=== PATIENT | male | born 1975 | race African-American/Black ===

== ENCOUNTER 2019-09-30 12:12 | Inpatient (IN) | payer MEDICAID ==
[~2019-09-30] VITALS: Ht 175.3 cm; Wt 81.4 kg
--- NOTE | 2019-09-30 12:21 | NUR ---
"VLADISLAVANGIE, FROM [facility], MISSED DIALYSIS DAYS DUE TO INSURANCE LAST HD SUNDAY" PT AAOX4, -SOB, NAD NTOED, VSS ,PTON MONITOR, PENDING MD SCHULRE
[2019-09-30 12:32] LABS: BASOPHILS # (AUTO) 0.1 /CMM (0.0-0.2); BASOPHILS % (AUTO) 1.5 % (0.0-2.0); EOSINOPHILS % (AUTO) 6.5 % (0.0-6.0); HEMATOCRIT 27 % (39-51); HEMOGLOBIN 8.9 g/dL (13.5-17.5); LYMPHOCYTES # (AUTO) 1.7 /CMM (0.8-4.8); LYMPHOCYTES % (AUTO) 22.4 % (20.0-44.0); MEAN CORPUSCULAR HGB CONC 33 g/dl (31.0-36.0); MEAN CORPUSCULAR VOLUME 86 fL (80-96); MONOCYTES # (AUTO) 0.8 /CMM (0.1-1.30); MONOCYTES % (AUTO) 10.6 % (2.0-12.0); NEUTROPHILS # (AUTO) 4.4 /CMM (1.8-8.9); PLATELET COUNT (AUTO) 416 /CMM (150-450); RED BLOOD CELL COUNT(AUTO) 3.17 MIL/uL (4.5-6.0); WHITE BLOOD COUNT (AUTO) 7.4 K/uL (4.3-11.0)
[2019-09-30 12:50] LABS: POTASSIUM 4.3 mmol/L (3.5-5.1)
[2019-09-30 12:52] LABS: CALCIUM, SERUM 9.2 mg/dL (8.5-10.1); CREATININE 5.3 mg/dL (0.6-1.3)
--- NOTE | 2019-09-30 15:01 | NUR ---
CALLED NURSING SUP FOR TELE BED.
--- NOTE | 2019-09-30 15:03 | NUR ---
ABDIRAHMAN CALLED. WAITING FOR CALL BACK FROM PLATE SETTER
--- NOTE | 2019-09-30 15:21 | NUR ---
GOT BED 323-2 RN RORO
[2019-09-30] MEDS ORDERED: INSU100C10 SQ (15:30)
[2019-09-30] MEDS ORDERED: GABA-534 PO (15:30)
[2019-09-30] MEDS ORDERED: INSU100V7 SQ (15:30)
[2019-09-30] MEDS ORDERED: HYDR-4354 PO (15:30)
[2019-09-30] MEDS ORDERED: SEVE800T8 PO (15:30)
[2019-09-30] MEDS ORDERED: BRIM5DRO3 EACHEYE (15:30)
[2019-09-30] MEDS ORDERED: FURO-144 PO (15:30)
[2019-09-30] MEDS ORDERED: HYDR-4077 PO (15:30)
[2019-09-30] MEDS ORDERED: LATA2.5D7 OP (15:30)
[2019-09-30] MEDS ORDERED: ATOR10TA PO (15:30)
[2019-09-30] MEDS ORDERED: CARI350T27 PO (15:30)
[2019-09-30] MEDS ORDERED: DORZ10DR EACHEYE (15:30)
[2019-09-30] MEDS ORDERED: ASPI-605 PO (15:30)
--- NOTE | 2019-09-30 15:53 | NUR ---
REPORT GIVEN TO RORO ZUNIGA FOR NAHOMY PT WILL BE TRANSPORTED TO 3RD FLOOR VIA ACLS PROTOCOL.
[2019-09-30] MEDS ORDERED: ACETAMINOPHEN 325 MG TABLET PO PRN (16:00)
[2019-09-30] MEDS ORDERED: ZOLPIDEM TARTRATE 5 MG TABLET PO PRN (16:00)
[2019-09-30] MEDS ORDERED: DEXTROSE 50%-WATER 50 ML DISP.SYRIN IV PRN (16:00)
[2019-09-30] MEDS ORDERED: ONDANSETRON HCL/PF 4 MG/2 ML VIAL IVP PRN (16:00)
--- NOTE | 2019-09-30 16:00 | NUR ---
RECEIVED PATIENT FROM ER VIA GURNEY. PATIENT IS A/O X4, ABLE TO MAKE NEEDS KNOWN. AMBULATORY WITH CANE, WITH STEADY GAIT. DIAGNOSIS OF ESRD. PER PATIENT HE IS HERE BECAUSE HE MISSED DIALYSIS, DIALYSIS CENTER WONT ACCEPT HIM DUE TO INSURANCE PURPOSES. NOT IN ANY FORM OF DISTRESS, DENIED PAIN AT THIS TIME. NO SOB. IV ACCESS LEFT FA GAUGE 20 INTACT AND PATENT. NOTED WITH [facility] HD ACCESS. SITUATED PATIENT IN THE ROOM. TAUGHT HOW TO USE THE CALL LIGHT, INSTRUCTED TO CALL FOR ASSISTANCE. BELONGINGS CHECK BY CAMDEN RASMUSSEN. REFUSED BODY CHECK AND SKIN ASSESSMENT, PER PATIENT HE ONLY HAS OPEN WOUND ON HIS BACK, PATIENT AGREED TO TAKE WOUND PHOTO. REFUSED TO WHERE HOSPITAL GOWN, PATIENT ON HIS REGULAR CLOTHES. SAFETY MEASURES IN PLACE. BED IN LOW/LOCKED POSITION, SIDERAILS UPX2, CALL LIGHT IN REACH WILL CONTINUE TO MONITOR ACCORDINGLY.
--- NOTE | 2019-09-30 16:05 | NUR ---
rn notes patient stated that he is legally blind, he can see a little but blurry and shadows
[2019-09-30 16:10] VITALS: BP 139/82
[2019-09-30] MEDS: BRIMONIDINE TARTRATE OPHT SOLN 5 ML BOTTLE EACHEYE SCH (17:49)
[2019-09-30] MEDS: SEVELAMER CARBONATE 0.8 GM POWD.PACK GT SCH (17:50)
[2019-09-30] MEDS: FUROSEMIDE 40 MG TABLET PO SCH (17:50)
[2019-09-30] MEDS: BLOOD SUGAR DIAGNOSTIC 1 EACH STRIP IN SCH ×2 (17:53→22:21)
[2019-09-30] MEDS: INSULIN GLARGINE, 100 UNIT/ML CARTRIDGE SQ SCH (17:55)
[2019-09-30] MEDS: INSULIN REGULAR, HUMAN 100 UNIT/ML 3 ML VIAL SQ PRN (17:56)
[2019-09-30] MEDS: HYDROCODONE/APAP 10/325MG 1 EA TABLET PO PRN (18:25)
--- NOTE | 2019-09-30 18:45 | NUR ---
RN OPENING NOTES PATIENT IN STABLE CONDITION. ALL NEEDS ATTENDED AND PROVIDED. ALL DUE MEDS GIVEN ORDERED. KEPT PATIENT SAFE AND COMFORTABLE. BED IN LOW/LOCKED POSITION, SIDERAILS UPX2, CALL LIGHT IN REACH. WILL ENDORSED TO NIGHT RN FOR NAHOMY Addendum: 09/30/19 at 1928 by RORO WILLIAM CLOSING NOTES
--- NOTE | 2019-09-30 18:50 | NUR ---
rn notes bed alarm on
--- NOTE | 2019-09-30 19:20 | NUR ---
RN NOTES/ASSESSMENT: RECEIVED REPORT FROM RORO ZUNIGA. PT RESTING IN BED, AWAKE, A/O X3, ON RA RESPIRATIONS EVEN AND UNLABORED. ONGOING HD STARTED AT 1900. HD RN STACIE AT BED SIDE. HD CONSENT SECURED. PT REFUSED FULL BODY CHECK AND REFUSED WEARING HOSPITAL GOWN. EDUCATION PROVIDED TO PT REGARDING RISK AND BENEFITS. PT HAS IV ACCESS IN PLACED, PATENT AND FLUSHING WELL, ON HL. URINAL AT BED SIDE. SAFETY PRECAUTIONS FOR FALL INITIATED, CALL LIGHT IN REACH, WILL CONTINUE MONITORING PT.
--- NOTE | 2019-09-30 20:03 | NUR ---
RN NOTES/HEP B: APPROACHED BY HD RN IRVING QUINONES PT NEEDS TO HAVE BLOOD DRAW FOR HEP B. STATED SHE ASKED THE DAY RN TO HAVE IT DRAWN BEFORE HD, BUT FOR SOME REASON IT WASN'T DONE. IRVING QUINONES TO HAVE THE BLOOD DRAW IN AM AT 0500.
[2019-09-30 20:10] VITALS: BP 136/88
--- NOTE | 2019-09-30 20:53 | NUR ---
RN NOTES/HD COMPLETED: HD COMPLETED AT THIS TIME, 1500 ML OUTPUT.
[2019-09-30] MEDS: DORZOLAMIDE OPTH 2% 10 ML BOTTLE EACHEYE SCH (21:00)
[2019-09-30 21:56] VITALS: BP 129/74
[2019-09-30] MEDS: LATANOPROST EYE DROP 0.005% 2.5 ML BOTTLE OP SCH (22:00)
--- NOTE | 2019-09-30 22:14 | NUR ---
rn notes: pt c/o 06/21 toe pain, right foot pain, groin pain, stated he's now allergic to norco and he doesnt want any norco in his system, what he specifically wants is morphine or dilaudid. contacted dr nik del rosario concert manager, relayed the situation, per , "no, stick with norco order", no other medication order receive.
[2019-09-30] MEDS: GABAPENTIN 300 MG CAPSULE PO SCH (22:20)
[2019-09-30] MEDS: hydrALAZINE HCL 50 MG TABLET PO SCH (22:20)
[2019-09-30] MEDS: ATORVASTATIN 10 MG TABLET PO SCH (22:21)
--- NOTE | 2019-09-30 22:44 | NUR ---
rn notes/dressing change: noted right ij dressing with old bandage, pt request for dressing change. dressing change provided, using aseptic technique same as central line dressing.
--- NOTE | 2019-09-30 22:45 | NUR ---
rnnotes: skin surrounding the IJ dialysis catheter noted to be c/d/i, no active bleeding noted, no bruises no fould odor noted. dressing c/d/i
[2019-10-01] VITALS (10 sets, daily range): BP systolic 130–161; BP diastolic 65–92
[2019-10-01] MEDS: HYDROCODONE/APAP 10/325MG 1 EA TABLET PO PRN ×4 (00:03→18:02)
[2019-10-01] MEDS: DORZOLAMIDE OPTH 2% 10 ML BOTTLE EACHEYE SCH ×4 (00:04→20:23)
[2019-10-01] MEDS: LATANOPROST EYE DROP 0.005% 2.5 ML BOTTLE OP SCH ×2 (00:04→21:47)
--- NOTE | 2019-10-01 00:08 | NUR ---
RN NOTES: PT CALLED FOR PAIN MEDS, WHEN REACH THE ROOM, PT ASLEEP, TRIED WAKING UP STATED HE'S READY TO TAKE HIS PAIN MEDS, RN WENT OUT TO GET CRANBERRY JUICE WHEN CAME TO THE ROOM, PT ASLEEP, TRIED WAKING PT UP TWICE BUT PT SNORING. HAVE ANOTHER RN WITNESS, PT AROUSES TO STIMULI BUT GO BACK TO SLEEP. WILL COME BACK TO GIVE MEDICATION ONCE PT FULLY AWAKE.
--- NOTE | 2019-10-01 03:43 | NUR ---
rn notes: pt sleeping at this time, appears calm and comfortable.
--- NOTE | 2019-10-01 04:39 | NUR ---
prn norco : pt now awake, a/o 8/10 generalized pain, requesting for norco. prn norco 10/325 mg tab po administered to pt at this time, will continue to monitor and reassess pt
[2019-10-01] MEDS: hydrALAZINE HCL 50 MG TABLET PO SCH ×3 (05:17→21:34)
[2019-10-01] MEDS: GABAPENTIN 300 MG CAPSULE PO SCH ×3 (05:17→21:33)
[2019-10-01] MEDS: BLOOD SUGAR DIAGNOSTIC 1 EACH STRIP IN SCH ×4 (06:15→21:44)
[2019-10-01] MEDS: INSULIN REGULAR, HUMAN 100 UNIT/ML 3 ML VIAL SQ PRN ×2 (06:15→21:51)
--- NOTE | 2019-10-01 06:16 | NUR ---
blood glucose 133/insulin refused: blood glucose 133, pt refused insulin at this time, stated he will wait for breakfast. education provided to pt. regarding risk and benefits.
--- NOTE | 2019-10-01 06:52 | NUR ---
END OF SHIFT SUMMARY: PT RESTING, LAST PAIN MEDICATION ADMINISTERED AT 0439. IV ACCESS REMAINS PATENT AND FLUSHING WELL, ON HL. NO S/S OF IV INFILTRATION NOTED. RIGHT IJ DRESSING REMAINS C/D/I, SURROUNDING SKIN FREE FROM REDNESS AND ANY BRUISES. PT REMAINS REFUSING FOR FULL BODY CHECK. AWAITING WOUND CARE CONSULT. VS REMAINS STABLE, NEEDS ATTENDED. SAFETY PRECAUTIONS FOR FALL REMAINS ENGAGED, CALL LIGHT IN REACH, WILL ENDORSE TO DAY RN FOR CONTINUITY OF CARE.
[2019-10-01 07:16] LABS: BASOPHILS # (AUTO) 0.1 /CMM (0.0-0.2); BASOPHILS % (AUTO) 1.2 % (0.0-2.0); EOSINOPHILS % (AUTO) 7.4 % (0.0-6.0); HEMATOCRIT 26 % (39-51); HEMOGLOBIN 8.6 g/dL (13.5-17.5); LYMPHOCYTES # (AUTO) 1.6 /CMM (0.8-4.8); LYMPHOCYTES % (AUTO) 21.6 % (20.0-44.0); MEAN CORPUSCULAR HGB CONC 33 g/dl (31.0-36.0); MEAN CORPUSCULAR VOLUME 86 fL (80-96); MONOCYTES # (AUTO) 0.8 /CMM (0.1-1.30); MONOCYTES % (AUTO) 10.1 % (2.0-12.0); NEUTROPHILS # (AUTO) 4.5 /CMM (1.8-8.9); NEUTROPHILS % (AUTO) 59.7 % (43.0-81.0); PLATELET COUNT (AUTO) 411 /CMM (150-450); RED BLOOD CELL COUNT(AUTO) 3.06 MIL/uL (4.5-6.0); WHITE BLOOD COUNT (AUTO) 7.6 K/uL (4.3-11.0)
[2019-10-01 07:47] LABS: CALCIUM, SERUM 8.6 mg/dL (8.5-10.1); CREATININE 3.9 mg/dL (0.6-1.3); MAGNESIUM 2.1 mg/dL (1.8-2.4); PHOSPHORUS 4.2 mg/dL (2.5-4.9)
[2019-10-01 07:56] LABS: THYROID STIMULATING HORMONE 1.143 uIU/mL (0.358-3.74)
[2019-10-01] MEDS: FUROSEMIDE 40 MG TABLET PO SCH ×2 (09:15→18:03)
[2019-10-01] MEDS: ASPIRIN EC 81 MG TABLET.DR PO SCH (09:15)
[2019-10-01] MEDS: SEVELAMER CARBONATE 0.8 GM POWD.PACK GT SCH ×3 (09:15→18:03)
[2019-10-01] MEDS: CARISOPRODOL 350 MG TABLET PO SCH (09:15)
[2019-10-01] MEDS: INSULIN GLARGINE, 100 UNIT/ML CARTRIDGE SQ SCH ×2 (09:16→18:00)
[2019-10-01] MEDS: BRIMONIDINE TARTRATE OPHT SOLN 5 ML BOTTLE EACHEYE SCH ×3 (09:32→18:12)
--- NOTE | 2019-10-01 10:21 | NUR ---
WOUND CARE CONSULT: PT PRESENTS WITH NECROTIC WOUND TO BACK, PRESENT ON ADMISSION. PT IS INDEPENDENT WITH BED MOBILITY AND CONTINENT AT THIS TIME. RECOMMEND SURGICAL CONSULT. DR GRIFFITH NOTIFIED OF CONSULT REQUEST. CURRENT BIJAN SCORE IS 17. WILL SEE PRN. [place] IN AGREEMENT WITH PLAN OF CARE. Addendum: 10/01/19 at 1023 by CHERRY FABIAN WNDNU Amended: Links added.
[2019-10-01] MEDS ORDERED: SILVER NITRATE APPLICATOR 1 EA BOX TP ONE (10:30)
[2019-10-01] MEDS ORDERED: LIDOCAINE 1%-EPI 1:100,000 20 ML VIAL TP ONE (10:30)
--- NOTE | 2019-10-01 10:30 | NUR ---
PT.VERBALLY ABUSIVE.CERAMICS TEACHER AND LAWNMOWER MECHANIC BOTH IN TO SEE PT.
--- NOTE | 2019-10-01 11:40 | NUR ---
received pt. from cat scanning,stable,hep lock in place.no complaints offered.vs taken and stable. Addendum: 10/01/19 at 1704 by BELLE RODRIGUEZ RN above info on wrong pt.
--- NOTE | 2019-10-01 13:45 | NUR ---
CHAZ WOUND DECISION SUPPORT MANAGER HERE AND DEBRIDEMENT DONE TO BACK.
--- NOTE | 2019-10-01 14:00 | NUR ---
DESIGN PAINTER. RENETTA UP AND SPOKE TO PT. HE WANTS INSURANCE LOOKED INTO FOR OUTPT. DIALYSIS AVAILABILITY.
[2019-10-01] MEDS: HYDROGEL DRESSING 90 GM TUBE TP SCH (16:54)
--- NOTE | 2019-10-01 18:52 | NUR ---
recovery room rn here and pt. agitated and questioning need.rn spoke with pt. and pt. aggreeable.
--- NOTE | 2019-10-01 19:10 | NUR ---
casting wheel operator opening notes Received Pt from morning nurse. Pt is alert and orientedX4. Pt is resting in bed comfortably. Pt is legally blind and able to make needs known. Pt is having a dialysis at the bed side. Respiration is normal. No SOB. No nausea or vomiting. Pt denies any pain or discomfort at this time. RIJ permacath is clean, intact and patent. LFA # 20 is clean, intact, patent and SL. Instructed to call. Safety precautions is maintained. Bed at low position, brakes locked, side rails upX3 and call light is within reach. Will continue to monitor. Addendum: 10/01/19 at 2021 by DAMARIS BURGESS RN Tele monitor showed sinus rhytm at 91.
--- NOTE | 2019-10-01 21:10 | NUR ---
transition mgr rn notes HD is completed with 1700 ml output.
[2019-10-01] MEDS: ATORVASTATIN 10 MG TABLET PO SCH (21:33)
--- NOTE | 2019-10-01 21:48 | NUR ---
mechanism inspector notes Did not administered xalatan opth drop because can't find the medication ( isn't at the bed side table or in a Pt's cassette).
--- NOTE | 2019-10-01 21:51 | NUR ---
operating system programmer notes Pt's blood sugar is 110. Did not administered regular insulin because Pt's blood sugar is 110. Will continue to monitor.
--- NOTE | 2019-10-01 22:00 | NUR ---
shuttler car notes Pt refused skin assessment and skin care. Pt stated ' I don't want it." Offered multiple times. Pt education provided. Pt keep refusing. Will continue to monitor.
[2019-10-02] VITALS: BP 146/97
[2019-10-02 04:00] VITALS: BP 157/89
[2019-10-02] MEDS: GABAPENTIN 300 MG CAPSULE PO SCH ×3 (04:25→20:49)
[2019-10-02] MEDS: hydrALAZINE HCL 50 MG TABLET PO SCH ×3 (04:25→20:49)
[2019-10-02] MEDS: DORZOLAMIDE OPTH 2% 10 ML BOTTLE EACHEYE SCH ×3 (04:26→20:22)
--- NOTE | 2019-10-02 04:29 | NUR ---
sand shoveler notes Pt refused Trusopt 2% soln opth. Pt education provided. Pt keep refusing. Will continue to monitor.
--- NOTE | 2019-10-02 07:00 | NUR ---
picker / packer notes Pt is resting in bed comfortably. Awaken easily. Pt is alert and orientedX4. Respiration is normal. No SOB. No S/S of distress noted. IV sites at LFA# 20 is clean, intact and patent. Routine meds were given as ordered. Pt refused to have blood sugar check. Made aware risks and benefits. Pt keep refusing. Kept Pt clean, dry and comfortable. All needs met and attended. Safety precautions is maintained. Bed at low position, brakes locked, side rails upX3 and call light is within reach. Will endorse to morning nurse for NAHOMY.
[2019-10-02] MEDS: BLOOD SUGAR DIAGNOSTIC 1 EACH STRIP IN SCH ×4 (07:52→21:07)
[2019-10-02 08:00] VITALS: BP 173/98
[2019-10-02] MEDS: CARISOPRODOL 350 MG TABLET PO SCH (08:35)
[2019-10-02] MEDS: SEVELAMER CARBONATE 0.8 GM POWD.PACK GT SCH ×3 (08:35→17:11)
[2019-10-02] MEDS: FUROSEMIDE 40 MG TABLET PO SCH ×2 (08:35→17:12)
[2019-10-02] MEDS: ASPIRIN EC 81 MG TABLET.DR PO SCH (08:35)
[2019-10-02] MEDS: HYDROGEL DRESSING 90 GM TUBE TP SCH (08:36)
[2019-10-02] MEDS: BRIMONIDINE TARTRATE OPHT SOLN 5 ML BOTTLE EACHEYE SCH ×3 (08:36→17:12)
[2019-10-02] MEDS: INSULIN GLARGINE, 100 UNIT/ML CARTRIDGE SQ SCH ×2 (08:46→17:16)
[2019-10-02] MEDS: INSULIN REGULAR, HUMAN 100 UNIT/ML 3 ML VIAL SQ PRN ×2 (11:36→21:09)
[2019-10-02 12:00] VITALS: BP 154/92
--- NOTE | 2019-10-02 12:00 | NUR ---
PT DIANELYS , D/C TO [facility]
[2019-10-02] MEDS: HYDROCODONE/APAP 10/325MG 1 EA TABLET PO PRN ×2 (12:21→19:29)
[2019-10-02 15:56] VITALS: BP 151/91
--- NOTE | 2019-10-02 18:40 | NUR ---
PT RESTING. IV ACCESS REMAINS PATENT AND FLUSHING WELL, HL.NO S/S OF IV INFILTRATION NOTED. RIGHT IJ DRESSING REMAINS C/D/I. VS REMAINS STABLE, NEEDS ATTENDED. SAFETY PRECAUTIONS FOR FALL REMAINS ENGAGED, CALL LIGHT IN REACH, WILL ENDORSE TO NEXT RN FOR CONTINUITY OF CARE.
--- NOTE | 2019-10-02 19:00 | NUR ---
RN medsur opening notes Pt is resting in bed comfortably. Pt is alert and orientedX4. Respiration is normal. No SOB. No nausea or vomiting. No S/S of distress noted. IV sites at LFA #20 is clean, intact, patent and flush without resistance. RIJ permacath is clean, intact and patent. Instructed to call for assistance. Safety precautions is maintained. Bed at low position, brakes locked, side rails upX2 and call light is within reach. Will continue to monitor.
--- NOTE | 2019-10-02 19:33 | NUR ---
EFRAIN sorensenrgerard opening notes Pt is complaining of pain. Administered [place] 10-325mg/1 tab/PO as ordered for pain 8/10 on pain scale. Instructed to call. Safety precautions is maintained. Will continue to monitor.
[2019-10-02 20:00] VITALS: BP 152/86
[2019-10-02] MEDS: ATORVASTATIN 10 MG TABLET PO SCH (21:00)
[2019-10-02] MEDS: LATANOPROST EYE DROP 0.005% 2.5 ML BOTTLE OP SCH (21:01)
[2019-10-03] MEDS: HYDROCODONE/APAP 10/325MG 1 EA TABLET PO PRN ×4 (02:31→23:30)
--- NOTE | 2019-10-03 02:40 | NUR ---
EFRAIN sorensenrgerard opening notes Pt is complaining of pain. Administered [place] 10-325mg/1 tab/PO as ordered for generalized pain 8/10 on pain scale. Instructed to call. Safety precautions is maintained. Will continue to monitor.
[2019-10-03 04:00] VITALS: BP 139/71
[2019-10-03] MEDS: GABAPENTIN 300 MG CAPSULE PO SCH ×3 (04:19→21:04)
[2019-10-03] MEDS: hydrALAZINE HCL 50 MG TABLET PO SCH ×3 (04:21→21:04)
[2019-10-03] MEDS: DORZOLAMIDE OPTH 2% 10 ML BOTTLE EACHEYE SCH ×3 (04:21→21:00)
[2019-10-03] MEDS: BLOOD SUGAR DIAGNOSTIC 1 EACH STRIP IN SCH ×4 (06:34→22:00)
[2019-10-03] MEDS: INSULIN REGULAR, HUMAN 100 UNIT/ML 3 ML VIAL SQ PRN ×3 (06:35→21:17)
--- NOTE | 2019-10-03 07:00 | NUR ---
RN medsurg closing notes Pt is resting in bed comfortably. Awaken easily. Respiration is normal. No SOB. No S/S of distress noted. IV sites at LFA # 20 is clean, intact, patent and SL. RIJ Permacath is clean, intact and patent. Routine meds were given as ordered including PRN meds for pain management. Pt refused skin assessment and skin care. Kept Pt clean, warm and comfortable. All needs met and attended. Instructed to call. Safety precautions is maintained. Bed at low position, brakes locked, side rails upX2 and call light is within reach. Will endorse to morning nurse for NAHOMY.
--- NOTE | 2019-10-03 07:36 | NUR ---
MS/RN Opening note Patient received resting in bed, A/ox4, showing no signs of acute distress or SOB, saturating well on RA. RIJ permacath noted and IV LFA #20 s/l is clean and showing no signs of infiltration. Bed is in lowest position, side rails x2 in upright position, call light is within reach and patient is aware of how to call for assistance when needed. Will continue with current plan of care.
[2019-10-03 08:00] VITALS: BP 166/103
[2019-10-03] MEDS: ASPIRIN EC 81 MG TABLET.DR PO SCH (09:14)
[2019-10-03] MEDS: CARISOPRODOL 350 MG TABLET PO SCH (09:14)
[2019-10-03] MEDS: FUROSEMIDE 40 MG TABLET PO SCH ×2 (09:14→17:12)
[2019-10-03] MEDS: SEVELAMER CARBONATE 0.8 GM POWD.PACK GT SCH ×3 (09:15→17:12)
[2019-10-03] MEDS: HYDROGEL DRESSING 90 GM TUBE TP SCH (09:16)
[2019-10-03] MEDS: BRIMONIDINE TARTRATE OPHT SOLN 5 ML BOTTLE EACHEYE SCH ×3 (09:17→17:00)
[2019-10-03] MEDS: INSULIN GLARGINE, 100 UNIT/ML CARTRIDGE SQ SCH ×2 (09:30→17:13)
[2019-10-03] MEDS: PROSOURCE / PROSTAT (PYXIS) 30 ML UDC PO SCH ×2 (12:15→17:00)
[2019-10-03 16:00] VITALS: BP 150/92
--- NOTE | 2019-10-03 18:00 | NUR ---
MS/corporate coordinator Patient finished with dialysis at 1800, vital signs within baseline, showing no signs of acute distress or SOB. Output 1500mL.
--- NOTE | 2019-10-03 18:46 | NUR ---
MS/RN Closing note Patient resting in bed, A/O x4, showing no signs of acute distress or SOB, saturating >95% on RA. IV line on LFA #20 s/l is clean and patent. RIJ Permacath noted. All patient needs met, all due meds given. Patient refused skin assessment. Bed is in lowest position, side rails x2 in upright position, call light is within reach and patient is aware of how to call for assistance when needed. Will endorse to [facility] shift lead.
--- NOTE | 2019-10-03 19:05 | NUR ---
MS RN OPENING NOTES: RECEIVED PATIENT RESTING IN BED COMFORTABLY. NO RESPIRATORY DISTRESS. NO COMPLAIN OF PAIN. LEGALLY BLIND, SCHOOL RESOURCE OFFICER AWARE. CALL LIGHT WITHIN REACH. BED ALARM ON. A/O X4. HAD DIALYSIS TODAY PER REPORTS. VOIDED IN THE URINAL, CLEAR YELLOW URINE OUTPUT. INSTRUCTED PATIENT TO CALL FOR ASSISTANCE, VERBALIZED UNDERSTANDING.
[2019-10-03 20:00] VITALS: BP 146/82
[2019-10-03] MEDS: ATORVASTATIN 10 MG TABLET PO SCH (21:04)
--- NOTE | 2019-10-03 21:17 | NUR ---
PATIENT'S BLOOD SUGAR FINGERSTICK IS 134, PATIENT REFUSED INSULIN.
[2019-10-03] MEDS: LATANOPROST EYE DROP 0.005% 2.5 ML BOTTLE OP SCH (22:00)
--- NOTE | 2019-10-03 23:31 | NUR ---
PATIENT AMBULATED TO THE BATHROOM,STEADY GAIT. BED ALARM WENT OFF, PATIENT GOT ANGRY AND VERBALIZED" TURN THAT OFF". WENT BACK TO THE BED. BED ALARM OFF.
[2019-10-04] MEDS: DORZOLAMIDE OPTH 2% 10 ML BOTTLE EACHEYE SCH ×3 (05:00→21:00)
[2019-10-04 05:08] VITALS: BP 153/89
[2019-10-04] MEDS: hydrALAZINE HCL 50 MG TABLET PO SCH ×3 (05:10→21:51)
[2019-10-04] MEDS: GABAPENTIN 300 MG CAPSULE PO SCH ×3 (05:10→21:51)
--- NOTE | 2019-10-04 06:51 | NUR ---
MS RN CLOSING NOTES: PATIENT IS RESTING COMFORTABLY IN BED, A/O X4. NO ACUTE EVENTS OVERNIGHT. RESTED THROUGHOUT THE NIGHT. PATIENT WANTS ALL HIS EYEDROPS AT THE BEDSIDE. AMBULATORY. REFUSED THE BED ALARM ON. LEGALLY BLIND. NO FALL OR INJURY DURING THE SHIFT. CALL LIGHT WITHIN REACH. BED IN LOWEST AND LOCKED POSITION. VITALS STABLE. AFEBRILE.
--- NOTE | 2019-10-04 07:48 | NUR ---
PATIENT REFUSED WOUND CARE DRESSING CHANGE ON HIS UPPER BACK.
[2019-10-04 08:00] VITALS: BP 151/90
[2019-10-04] MEDS: BRIMONIDINE TARTRATE OPHT SOLN 5 ML BOTTLE EACHEYE SCH ×3 (09:00→17:00)
[2019-10-04] MEDS: HYDROCODONE/APAP 10/325MG 1 EA TABLET PO PRN ×3 (09:37→22:53)
--- NOTE | 2019-10-04 09:37 | NUR ---
MEDICATED FOR GENERALIZED PAIN WITH NORCO 10 MG.
[2019-10-04] MEDS: CARISOPRODOL 350 MG TABLET PO SCH (09:45)
[2019-10-04] MEDS: SEVELAMER CARBONATE 0.8 GM POWD.PACK GT SCH ×3 (09:45→17:46)
[2019-10-04] MEDS: ASPIRIN EC 81 MG TABLET.DR PO SCH (09:45)
[2019-10-04] MEDS: FUROSEMIDE 40 MG TABLET PO SCH ×2 (09:45→17:46)
[2019-10-04] MEDS: PROSOURCE / PROSTAT (PYXIS) 30 ML UDC PO SCH ×3 (09:46→17:00)
[2019-10-04] MEDS: BLOOD SUGAR DIAGNOSTIC 1 EACH STRIP IN SCH ×4 (09:47→21:52)
[2019-10-04] MEDS: INSULIN GLARGINE, 100 UNIT/ML CARTRIDGE SQ SCH ×2 (09:49→17:00)
[2019-10-04] MEDS: HYDROGEL DRESSING 90 GM TUBE TP SCH (09:57)
[2019-10-04] MEDS: INSULIN REGULAR, HUMAN 100 UNIT/ML 3 ML VIAL SQ PRN ×2 (12:14→21:55)
--- NOTE | 2019-10-04 15:14 | NUR ---
NO CHANGE IN STATUS.
[2019-10-04 16:00] VITALS: BP 133/74
--- NOTE | 2019-10-04 17:56 | NUR ---
dinner time claratus held as blood sugar 84 and pt. hasn't eaten yet.
[2019-10-04 20:00] VITALS: BP 150/70
[2019-10-04] MEDS: ATORVASTATIN 10 MG TABLET PO SCH (21:51)
[2019-10-04] MEDS: LATANOPROST EYE DROP 0.005% 2.5 ML BOTTLE OP SCH (21:52)
--- NOTE | 2019-10-04 22:55 | NUR ---
MS/RN PATIENT IS AWAKE, ALERT, ORIENTED, C/O GENERALIZED PAIN, 8/10, MEDICATED WITH HYDROCODONE 10 MG PO WAS ORDERED. ENDORSED TO NEXT RN FOR CONTINUITY OF CARE.
--- NOTE | 2019-10-04 23:00 | NUR ---
MS RN NOTES Assume care of this patient. Asleep on bed, no s/sx of discomfort noted at this time.
[2019-10-05] MEDS ORDERED: FENTANYL PF 100MCG/2ML AMPUL ONE (04:38)
[2019-10-05] MEDS: hydrALAZINE HCL 50 MG TABLET PO SCH ×3 (05:12→22:01)
[2019-10-05] MEDS: GABAPENTIN 300 MG CAPSULE PO SCH ×3 (05:12→21:59)
[2019-10-05] MEDS: DORZOLAMIDE OPTH 2% 10 ML BOTTLE EACHEYE SCH ×3 (05:13→22:01)
[2019-10-05] MEDS: BLOOD SUGAR DIAGNOSTIC 1 EACH STRIP IN SCH ×4 (06:34→22:11)
--- NOTE | 2019-10-05 06:49 | NUR ---
MS RN CLOSING NOTES Patient asleep, on RA, no SOB/respiratory distress noted. All nursing needs attended, no new complaints made. Kept on bed clean, dry and comfortable. Call light within easy reach. Endorsed to the next shift.
--- NOTE | 2019-10-05 07:29 | NUR ---
MS/RN Opening note Patient received resting in bed, A/O x4, showing no signs on acute distress or SOB, saturating >95% on RA. RIJ permacath noted and LFA #20 h/l is clean and patent. Patient refused skin assessment at this time. Bed is in lowest position, side rails x2 in upright position, call light is within reach and patient is aware of how to call for assistance when needed. Will continue with current plan of care.
[2019-10-05 08:00] VITALS: BP 140/79
[2019-10-05] MEDS: FUROSEMIDE 40 MG TABLET PO SCH ×2 (08:08→16:54)
[2019-10-05] MEDS: CARISOPRODOL 350 MG TABLET PO SCH (08:08)
[2019-10-05] MEDS: ASPIRIN EC 81 MG TABLET.DR PO SCH (08:08)
[2019-10-05] MEDS: SEVELAMER CARBONATE 0.8 GM POWD.PACK GT SCH ×3 (08:09→17:53)
[2019-10-05] MEDS: BRIMONIDINE TARTRATE OPHT SOLN 5 ML BOTTLE EACHEYE SCH ×3 (08:09→16:48)
[2019-10-05] MEDS: PROSOURCE / PROSTAT (PYXIS) 30 ML UDC PO SCH ×3 (08:10→16:47)
[2019-10-05] MEDS: HYDROGEL DRESSING 90 GM TUBE TP SCH (08:10)
[2019-10-05] MEDS: INSULIN GLARGINE, 100 UNIT/ML CARTRIDGE SQ SCH ×2 (08:13→16:51)
[2019-10-05] MEDS: HYDROCODONE/APAP 10/325MG 1 EA TABLET PO PRN ×2 (08:18→15:57)
[2019-10-05 09:46] VITALS: BP 140/78
[2019-10-05] MEDS: INSULIN REGULAR, HUMAN 100 UNIT/ML 3 ML VIAL SQ PRN ×2 (12:08→22:12)
[2019-10-05 16:00] VITALS: BP 164/80
--- NOTE | 2019-10-05 17:52 | NUR ---
MS/RN dailysis complete Dialysis output 2200ml
--- NOTE | 2019-10-05 18:30 | NUR ---
MS/RN Closing note Patient resting in bed, A/O x4, showing no signs of acute distress or SOB, saturating well on RA. Patient refused skin assessment and skin care. RIJ noted and LFA #20 s/l is clean and patent. Dialysis completed with 2200ml output. All due meds given, all patient needs met. Bed is in lowest position, side rails x2 in upright position, call light is within reach and patient is aware of how to call for assistance when needed. Will endorse to caustic cresylate shift superintendent.
--- NOTE | 2019-10-05 19:10 | NUR ---
MS RN NOTES RECEIVED PT IN BED AWAKE AND ABLE TO MAKE NEEDS KNOWN. PT A/O X3. RESPIRATIONS EVEN AND UNLABORED WITH NO S/S OF ACUTE DISTRESS OR SOB NOTED. PT WITH RIJ PERMACATH WELL LFA #20G PATENT AND INTACT AND SL. NO COMPLAINTS OF PAIN AT THIS TIME. SAFETY MEASURES IN PLACE WITH BED IN LOWEST LOCKED POSITION WITH SIDE RAILS UP X2. CALL LIGHT WITHIN REACH. WILL CONTINUE TO MONITOR.
[2019-10-05 20:00] VITALS: BP 140/80
--- NOTE | 2019-10-05 20:30 | NUR ---
MS RN NOTES PT REFUSED TO HAVE PHOTOS TAKEN AT THIS TIME. WILL CONTINUE TO MONITOR.
[2019-10-05] MEDS: ATORVASTATIN 10 MG TABLET PO SCH (21:59)
[2019-10-05] MEDS: LATANOPROST EYE DROP 0.005% 2.5 ML BOTTLE OP SCH (22:01)
[2019-10-06] MEDS: GABAPENTIN 300 MG CAPSULE PO SCH ×3 (04:56→20:52)
[2019-10-06] MEDS: DORZOLAMIDE OPTH 2% 10 ML BOTTLE EACHEYE SCH ×3 (04:56→20:52)
[2019-10-06] MEDS: HYDROCODONE/APAP 10/325MG 1 EA TABLET PO PRN ×3 (04:56→19:45)
[2019-10-06] MEDS: hydrALAZINE HCL 50 MG TABLET PO SCH ×3 (05:00→20:52)
[2019-10-06] MEDS: INSULIN REGULAR, HUMAN 100 UNIT/ML 3 ML VIAL SQ PRN ×4 (06:45→21:21)
--- NOTE | 2019-10-06 07:30 | NUR ---
MS/RN Opening note Patient received resting in bed, A/O x4, had difficulty with vision but can see outlines, showing no signs of acute distress, saturating >95% on RA. IV line in the LFA #20 s/l is clean and patent, RIJ permacath noted. Bed is in lowest position, side rails x3 in upright position, call light is within reach and patient is aware of of how to call for assistance when needed. Will continue with current plan of care.
[2019-10-06] MEDS: BLOOD SUGAR DIAGNOSTIC 1 EACH STRIP IN SCH ×4 (07:31→21:11)
--- NOTE | 2019-10-06 07:31 | NUR ---
MS RN NOTES PT IN BED AWAKE AND ABLE TO MAKE NEEDS KNOWN. PT A/O X3. RESPIRATIONS EVEN AND UNLABORED WITH NO S/S OF ACUTE DISTRESS OR SOB NOTED THROUGHOUT SHIFT. PT WITH RIJ PERMACATH WELL LFA #20G PATENT AND INTACT AND SL. NO COMPLAINTS OF PAIN AT THIS TIME. SAFETY MEASURES IN PLACE WITH BED IN LOWEST LOCKED POSITION WITH SIDE RAILS UP X2. CALL LIGHT WITHIN REACH. WILL ENDORSE TO ONCOMING NURSE FOR NAHOMY.
[2019-10-06 08:05] VITALS: BP 151/81
[2019-10-06] MEDS: SEVELAMER CARBONATE 0.8 GM POWD.PACK GT SCH ×3 (08:27→18:11)
[2019-10-06] MEDS: CARISOPRODOL 350 MG TABLET PO SCH (08:27)
[2019-10-06] MEDS: FUROSEMIDE 40 MG TABLET PO SCH ×2 (08:27→16:25)
[2019-10-06] MEDS: ASPIRIN EC 81 MG TABLET.DR PO SCH (08:27)
[2019-10-06] MEDS: INSULIN GLARGINE, 100 UNIT/ML CARTRIDGE SQ SCH ×2 (08:27→16:26)
[2019-10-06] MEDS: PROSOURCE / PROSTAT (PYXIS) 30 ML UDC PO SCH ×3 (08:28→16:25)
[2019-10-06] MEDS: HYDROGEL DRESSING 90 GM TUBE TP SCH (08:28)
[2019-10-06] MEDS: BRIMONIDINE TARTRATE OPHT SOLN 5 ML BOTTLE EACHEYE SCH ×3 (08:28→16:37)
[2019-10-06 09:16] VITALS: BP 151/81
[2019-10-06 16:00] VITALS: BP 142/73
--- NOTE | 2019-10-06 17:42 | NUR ---
MS/RN Closing note Patient is resting in bed, showing no signs of acute distress or SOB, saturating >95% on RA. Patient refused skin assessment and skin care. All patient needs met, all due meds given. IV line in the LFA #20 s/l is clean and patent. RIJ Permacath noted. Bed is in lowest position, side rails x2 in upright position, call light is within reach and patient is aware of how to call for assistance when needed. Will endorse to rn shift mgr.
--- NOTE | 2019-10-06 19:35 | NUR ---
MS/RN OPENING NOTES: RECEIVED PATENT IN BED AWAKE AND ABLE TO MAKE NEEDS KNOWN. PT A/O X3. HAS DIFFICULT VISION BUT CAN SEE OUTLINES. ON ROOM AIR, NO SOB, RESPIRATIONS EVEN AND UNLABORED WITH NO S/S OF ACUTE DISTRESS NOTED. PT WITH RIJ PERMACATH AND LFA #20G PATENT AND INTACT AND SL. NO COMPLAINTS OF PAIN AT THIS TIME. PATIENT REFUSED SKIN CARE AND SKIN ASSESSMENT. SAFETY MEASURES ARE IN PLACE WITH BED IN LOWEST LOCKED POSITION WITH SIDE RAILS UP X2. CALL LIGHT WITHIN REACH. WILL CONTINUE TO MONITOR.
--- NOTE | 2019-10-06 19:45 | NUR ---
MS/RN NOTES: PATIENT COMPLAINED OF PAIN AT THE GROIN, STATING PAIN LEVEL OF 8 ON A PAIN SCALE OF 0-10. NORCO 10-325 TAB WAS GIVEN AT 1945. PATIENT IS STABLE. VITAL SIGNS STABLE. WILL MONITOR PATIENT AND REASSESS ACCORDINGLY. ALL NEEDS MET AT THIS TIME.
[2019-10-06 20:00] VITALS: BP 150/89
[2019-10-06 20:14] VITALS: BP 150/89
[2019-10-06] MEDS: ATORVASTATIN 10 MG TABLET PO SCH (21:16)
[2019-10-06] MEDS: LATANOPROST EYE DROP 0.005% 2.5 ML BOTTLE OP SCH (21:17)
[2019-10-07] MEDS: hydrALAZINE HCL 50 MG TABLET PO SCH ×3 (05:07→20:53)
[2019-10-07] MEDS: GABAPENTIN 300 MG CAPSULE PO SCH ×3 (05:08→20:50)
[2019-10-07] MEDS: DORZOLAMIDE OPTH 2% 10 ML BOTTLE EACHEYE SCH ×3 (05:08→20:50)
--- NOTE | 2019-10-07 06:15 | NUR ---
MS/RN CLOSING NOTES: PATIENT IS AWAKE IN BED. A/OX3. VERBALLY RESPONSIVE AND ABLE TO MAKE NEEDS KNOWN. IN STABLE CONDITION. NO SOB NOTED. NO S/S OF ACUTE DISTRESS. ON ROOM AIR, BREATHING EVEN AND UNLABORED. NO COMPLAINS OF PAIN AT THIS TIME. ALL DUE MEDICATIONS GIVEN ORDERED. TOLERATED WELL. ALL NURSING NEEDS MET AND ATTENDED. IV ACCESS LOCATED ON THE RIJ PERMACATH, AND RIGHT LEFT FOREARM #20G INTACT AND PATENT. KEPT PATIENT WARM AND COMFORTABLE DURING SHIFT. KEPT PATIENT CLEAN AND DRY AT ALL TIMES. BLOOD SUGAR CHECK DONE AT 0600, BS LEVEL OF 96. SAFETY MEASURES KEPT IN PLACE. BED IS IN LOW, LOCKED POSITION WITH SIDE RAILS UP X2. HEMODIALYSIS SCHEDULED IN THE MORNING. CALL LIGHT WITH IN REACH. WILL ENDORSE TO DAY SHIFT FOR NAHOMY.
[2019-10-07] MEDS: BLOOD SUGAR DIAGNOSTIC 1 EACH STRIP IN SCH ×4 (06:31→21:28)
[2019-10-07 08:00] VITALS: BP_SYST 151; BP_SYST 152; BP_DIAS 68; BP_DIAS 91
--- NOTE | 2019-10-07 08:00 | NUR ---
MS RN NOTES RECEIVED PATIENT IN THE BED A/O X3, WAS COMPLAINING OF PAIN GENERALIZED 7/10 PER PAIN SCALE, V/ S TAKEN STABLE, NO ACUTE RESPIRATORY DISTRESS, PATIENT BLIND ON BOTH EYES BUT CAN SEE SHADOWS. ADMINISTERED SCHEDULED MEDICATION, PATIENT TURN AND REPOSTION SELF IN THE BED, BS=92 MG/DL HOLD COVERAGE. SEEN PATIENT BY HOSPITALIST Dr YANCEY , NO NEW ORDER CONTINU HOSPITALIZATION. PATIENT REFUSED SKIN ASSESSMENT AT THIS TIME. CALL LIGHT WITHIN TO REACH, BED ALARM ON. PATIENT USING URINAL, AND DIAPER.
[2019-10-07] MEDS: SEVELAMER CARBONATE 0.8 GM POWD.PACK GT SCH ×3 (08:56→17:08)
[2019-10-07] MEDS: ASPIRIN EC 81 MG TABLET.DR PO SCH (08:56)
[2019-10-07] MEDS: FUROSEMIDE 40 MG TABLET PO SCH ×2 (08:56→17:08)
[2019-10-07] MEDS: CARISOPRODOL 350 MG TABLET PO SCH (08:56)
[2019-10-07] MEDS: HYDROGEL DRESSING 90 GM TUBE TP SCH (08:59)
[2019-10-07] MEDS: INSULIN GLARGINE, 100 UNIT/ML CARTRIDGE SQ SCH ×2 (09:00→17:00)
[2019-10-07] MEDS: PROSOURCE / PROSTAT (PYXIS) 30 ML UDC PO SCH ×4 (09:02→17:00)
[2019-10-07] MEDS: BRIMONIDINE TARTRATE OPHT SOLN 5 ML BOTTLE EACHEYE SCH ×3 (09:02→17:16)
[2019-10-07] MEDS: HYDROCODONE/APAP 10/325MG 1 EA TABLET PO PRN ×3 (09:03→22:05)
--- NOTE | 2019-10-07 09:03 | NUR ---
RN NOTES ADMINISTERED NARCO 10/325 MG PO PRN FOR GENERALIZED PAIN 05/21 PER PATIENT REQUEST, V/S TAKEN BP 151/91, P-87, R-18. PATIENT BLIND ON BOTH EYES,ABLE TO TURN AND REPOSTION SELF IN THE BED. CALL LIGHT WITHIN TO REACH.
--- NOTE | 2019-10-07 12:00 | NUR ---
MS RN NOTES BS-268 MG/DL COVERAGE GIVEN, PATIENT TOLERATED LUNCH 100 %, , MEDICATION WERE ADMINISTERED EFFECTIVE. ADMINISTERED SCHEDULED MEDICATION. NEEDS ATTENDED AND ANTICIPATED, PATIENT UNKEMPT. CALL LIGHT WITHIN TO REACH, BED ALARM ON. SAFETY PRECAUTION MAINTAINED ALL THE TIME.
[2019-10-07] MEDS: INSULIN REGULAR, HUMAN 100 UNIT/ML 3 ML VIAL SQ PRN ×2 (14:14→21:32)
--- NOTE | 2019-10-07 15:44 | NUR ---
RN NOTES ADMINISTERED NARCO 5/325 MG PO PRN FOR GENERALIZED PAIN 06/21 PER PATIENT REQUEST, V/S TAKEN BP-132/65, P-78, CONTINUED MONITORING.
[2019-10-07 16:00] VITALS: BP 130/78
--- NOTE | 2019-10-07 17:09 | NUR ---
RN NOTES BS-54 MG/DL, ADMINISTERED DEXTROSE 50 ML IV PUSH PER PROTOCOL, PATIENT A/O X3, NO S/S OF HYPOGLYCEMIA, V/S TAKEN BP 130/78, P-88, ALSO ADMINISTERED APPLE JUICE, AND PATIENT EATING DINNER. HELD LANTUS SCHEDULED. CONTINUED MONITORING.
--- NOTE | 2019-10-07 18:17 | NUR ---
RN NOTES BS-182 MG/DL, PATIENT STABLE, MEDICATION WERE ADMINISTERED FOR PAIN EFFECTIVE, DRESSING CHANGED ON UPPER BACK, APPLIED LOTION ON LOWER EXTREMITAS,. PATIENT WILL DUALIZED TODAY 2100 PER DIALYZE NURSE. CALL LIGHT WITHIN TO REACH. SAFETY PRECAUTION MAINTAINED ALL THE TIME. ENDORSED ONCOMING NURSE FOLLOW PLAN OF CARE.
--- NOTE | 2019-10-07 19:35 | NUR ---
MS/RN OPENING NOTES: RECEIVED PATENT AWAKE IN BED, WATCHING TV. VERBALLY RESPONSIVE AND ABLE TO MAKE NEEDS KNOWN. PT A/O X3. HAS DIFFICULTY SEEING BUT STATES HE CAN SEE OUTLINES. ON ROOM AIR, NO SOB, RESPIRATIONS EVEN AND UNLABORED WITH NO S/S OF ACUTE DISTRESS NOTED. PT WITH RIJ PERMACATH AND LFA #20G PATENT AND INTACT AND SL. NO COMPLAINTS OF PAIN OR DISCOMFORT AT THIS TIME. PT. USES THE URINAL. PER DAY SHIFT NURSE, WOUND DRESSING WAS CHANGED. ASKED PATIENT FOR SKIN ASSESSMENT TO BE DONE DURING BEGINNING OF SHIFT AND HE REFUSED 3X. SAFETY MEASURES ARE IN PLACE WITH BED IN LOWEST LOCKED POSITION WITH SIDE RAILS UP X2. ALL NEEDS ATTENDED AND MET AT THIS TIME. PATIENT CONCERNS ADRESSED. HEMODYALISIS SCHEDULED TO ARRIVE AT 2100. PATIENT WAS INFORMED ABOUT IT. CALL LIGHT WITHIN REACH. WILL CONTINUE TO MONITOR PT. ACCORDINGLY.
[2019-10-07 20:00] VITALS: BP 146/84
[2019-10-07] MEDS: LATANOPROST EYE DROP 0.005% 2.5 ML BOTTLE OP SCH (22:03)
[2019-10-07] MEDS: ATORVASTATIN 10 MG TABLET PO SCH (22:03)
--- NOTE | 2019-10-07 22:05 | NUR ---
MS RN NOTES: PATIENT COMPLAINED OF PAIN ON THE RIGHT CHEST. PAIN LEVEL OF 8/10. NORCO 10/325MG TAB WAS GIVEN AT 2205. TOLERATED WELL. WILL REASSESS AND CONTINUE TO MONITOR PATIENT ACCORDINGLY.
--- NOTE | 2019-10-07 23:00 | NUR ---
RN NOTES: PATIENT RECEIVED HEMODIALYSIS. TREATMENT TIME WAS 3 HOURS. DIALYSIS OUTPUT 2500 ML. PATIENT IS IN A STABLE CONDITION. WILL CONTINUE TO MONITOR.
[2019-10-08] MEDS: DORZOLAMIDE OPTH 2% 10 ML BOTTLE EACHEYE SCH ×2 (05:00→12:32)
[2019-10-08] MEDS: GABAPENTIN 300 MG CAPSULE PO SCH ×2 (05:00→12:32)
[2019-10-08] MEDS: hydrALAZINE HCL 50 MG TABLET PO SCH ×2 (05:01→12:32)
[2019-10-08] MEDS: BLOOD SUGAR DIAGNOSTIC 1 EACH STRIP IN SCH ×2 (06:33→12:06)
[2019-10-08] MEDS: INSULIN REGULAR, HUMAN 100 UNIT/ML 3 ML VIAL SQ PRN ×2 (06:34→12:38)
--- NOTE | 2019-10-08 06:38 | NUR ---
MS/ RN CLOSING NOTES: PATIENT IS AWAKE IN BED. A/OX3. VERBALLY RESPONSIVE AND ABLE TO MAKE NEEDS KNOWN. KEPT PATIENT WARM AND COMFORTABLE THROUGHOUT THE SHIFT. PATIENT IS IN A STABLE CONDITION. NO SOB NOTED. NO S/S OF ACUTE DISTRESS. ON ROOM AIR, BREATHING EVEN AND UNLABORED. NO COMPLAINS OF PAIN AT THIS TIME. ALL DUE MEDICATIONS GIVEN ORDERED. TOLERATED WELL. ALL NURSING NEEDS MET AND ATTENDED. IV ACCESS LOCATED ON THE RIJ PERMACATH, AND LEFT FOREARM #20G INTACT AND PATENT. BLOOD SUGAR CHECK DONE 0620. BLOOD SUGAR LEVEL OF 124, NO UNITS OF INSULIN NEEDED PER INSULIN SLIDING SCALE. KEPT PATIENT CLEAN AND DRY AT ALL TIMES. SAFETY MEASURES KEPT IN PLACE. BED IS IN LOW, LOCKED POSITION WITH SIDE RAILS UP X2. CALL LIGHT WITH IN REACH. WILL ENDORSE TO DAY SHIFT FOR NAHOMY.
[2019-10-08 08:00] VITALS: BP 134/71
--- NOTE | 2019-10-08 08:00 | NUR ---
MS/ RN AM NOTES: PATIENT IS AWAKE IN BED. A/OX3. VERBALLY RESPONSIVE AND ABLE TO MAKE NEEDS KNOWN.NO SOB NOTED. NO S/S OF ACUTE DISTRESS. ON ROOM AIR, BREATHING EVEN AND UNLABORED. NO COMPLAINS OF PAIN AT THIS TIME. ALL DUE MEDICATIONS GIVEN ORDERED. TOLERATED WELL. IV ACCESS LOCATED ON THE RIJ PERMACATH, AND LEFT FOREARM #20G INTACT AND PATENT.NO HYPO/HYPERGLYCEMIA NOTED.KEPT PATIENT CLEAN AND DRY AT ALL TIMES. SAFETY MEASURES KEPT IN PLACE. BED IS IN LOW, LOCKED POSITION WITH SIDE RAILS UP X2. CALL LIGHT WITH IN REACH.
[2019-10-08] MEDS: PROSOURCE / PROSTAT (PYXIS) 30 ML UDC PO SCH ×2 (09:00→12:26)
[2019-10-08] MEDS: HYDROCODONE/APAP 10/325MG 1 EA TABLET PO PRN ×2 (09:17→09:22)
[2019-10-08] MEDS: CARISOPRODOL 350 MG TABLET PO SCH (09:22)
[2019-10-08] MEDS: ASPIRIN EC 81 MG TABLET.DR PO SCH (09:22)
[2019-10-08] MEDS: FUROSEMIDE 40 MG TABLET PO SCH (09:22)
[2019-10-08] MEDS: BRIMONIDINE TARTRATE OPHT SOLN 5 ML BOTTLE EACHEYE SCH ×2 (09:24→12:31)
[2019-10-08] MEDS: INSULIN GLARGINE, 100 UNIT/ML CARTRIDGE SQ SCH (09:49)
[2019-10-08] MEDS: SEVELAMER CARBONATE 0.8 GM POWD.PACK GT SCH ×2 (09:52→12:32)
--- NOTE | 2019-10-08 10:00 | NUR ---
PT WAS CUSSING AND VERBALIZED GETTING FRUSTRATED OF THE FLUX MIXER'S FOLLOW UP WITH THE PENDING CONFIRMATION FROM [facility] FOR HIM TO BE ABLE TO GO HOME.FOLLOW UP CALL MADE TO RENETTAPROCESS CHEESE COOKER WHO STATED THAT SHE IS STILL WAITING FOR THE CONFIRMATION FROM [facility].
[2019-10-08] MEDS: HYDROGEL DRESSING 90 GM TUBE TP SCH (12:06)
[2019-10-08 12:32] VITALS: BP 151/101
--- NOTE | 2019-10-08 13:00 | NUR ---
CALLED RENETTA [facility]SHALL [facility] WITH THE FOLLOWING NOTES:10/08/2019 11:30 SPOKE WITH SIMONE FROM [facility] D[facility] ADMISSIONS AND HE STATED THAT THEY FA[facility]ED OVER THE [facility] AND ARE WAITING ON ORDERS FROM THE ACCEPTING REGISTERED PHLEBOTOMIST PART TIME AT THE DIAYLSIS CENTER. IVY THE ADMISSIONS CM WILL CALL ME WITH A FOLLOW UP ONCE THE ORDERS ARE IN. CM TO FOLLOW UP. 10/08/2019 SPOKE WITH KARL FORM [facility] ADMISSION AND SHE STATED THAT THEY ARE STILL WAITING ON THE DIALYSIS CENTER TO RESPOND WITH CONFIRMING CHAIRTIME.
--- NOTE | 2019-10-08 14:00 | NUR ---
DURING ROUNDS,HEARD PT UPSET, CUSSING AND WAS VERY ANGRY AT THE PERSON HE WAS TALKING TO FROM [facility] WHO TOOK ALL HIS STUFF OUT OF HIS ROOM AND BROUGHT THEM TO THE GARAGE.PT VERBALIZED GOING AMA AND WANTS TO LEAVE THE HOSPITAL VIA [facility] INSPITE OF EXPLAINING THE RISKS AND BENEFITS OF GOING AMA-PT INSISTS TO GO AMA. PT STATED HE WILL PAY FOR THE TAXI.INFORMED THE SCRIP CLERK,DR YANCEY AND THE NURSING DRYWALL CARRIER.
--- NOTE | 2019-10-08 15:40 | NUR ---
PT WENT AMA AFTER SIGNING AMA PAPER,CHECKING HIS BELONGINGS AND REMOVING HIS IV H/L TO [facility].REFUSED BODY CHECK.
== END 2019-10-08 15:00 | disposition left against medical advice (07) | DRG 951 ==
LOC: ER 12:18 → TELE 15:47 → MED 10-02 12:22
PROVIDERS: ATTEND Internal Medicine
DX: I13.2 Hypertensive heart and chronic kidney disease with heart failure and with stage 5 chronic kidney disease, or end stage renal disease (principal); L89.104 Pressure ulcer of unspecified part of back, stage 4; E11.22 Type 2 diabetes mellitus with diabetic chronic kidney disease; N18.6 End stage renal disease; K21.9 Gastro-esophageal reflux disease without esophagitis; Z59.0 Homelessness; Z91.15 Patient's noncompliance with renal dialysis; Z99.2 Dependence on renal dialysis; E78.5 Hyperlipidemia, unspecified; D64.9 Anemia, unspecified; Z79.4 Long term (current) use of insulin; H54.8 Legal blindness, as defined in USA; F19.11 Other psychoactive substance abuse, in remission; I50.9 Heart failure, unspecified
CPT/HCPCS: 36415; 71045-TC; 80048-TC; 80061-TC; 82962-TC; 83735-TC; 84100-TC; 84443-TC; 84484-TC; 85025-TC; 86704; 86706; 87081-TC; 87340; 90935-TC; A6248; A6403; G0378; J1815; J3010; J3490